=== PATIENT | female | born 1995 | race African-American/Black ===

== ENCOUNTER 2019-06-18 17:58 | Emergency (ER) | payer MEDICAID ==
[~2019-06-18] VITALS: Ht 172.7 cm; Wt 82.0 kg
[2019-06-18 20:22] VITALS: BP 120/58
== END 2019-06-18 20:23 | disposition home or self-care (01) ==
LOC: ER 17:58
DX: J02.9 Acute pharyngitis, unspecified (principal); R50.9 Fever, unspecified
CPT/HCPCS: 87070; 87430; 99283